=== PATIENT | male | born 1965 | race Caucasian/White ===

== ENCOUNTER 2016-07-20 21:09 | Inpatient (IN) ==
[2016-07-20] MEDS ORDERED: VANCOMYCIN IV PER PHARMACY MISC SCH (21:30)
[2016-07-21] MEDS: ZOFRAN IV PRN (00:29)
[2016-07-21] MEDS: MORPHINE IV PRN ×9 (00:29→22:28)
[2016-07-21] MEDS: LR 1,000 ML IV SCH ×3 (00:30→15:19)
[2016-07-21] MEDS: ZOSYN 3.375 GM/NS 3.375 GM/50 ML IVPB IV SCH ×5 (00:30→20:14)
[2016-07-21 01:45] LABS: AGAP 14; BUN 13 mg/dL (8-22); CALCIUM 8.6 mg/dL (8.8-10.2); CHLORIDE 95 mmol/L (98-107); COSMO 270; POTASSIUM 2.9 mmol/L (3.5-5.1); SODIUM 134 mmol/L (136-145); TCO2 25 mmol/L (25-35)
[2016-07-21] MEDS ORDERED: VANCOMYCIN 2,000 MG in NS 500 ML IV ONE (03:00)
[2016-07-21 06:20] LABS: MANUAL DIFF NEEDED? NO
--- NOTE | 2016-07-21 06:41 | HISTORY AND PHYSICAL ---
ADMITTING DIAGNOSIS: Scrotal abscess. HISTORY OF PRESENT ILLNESS: A 51-year-old male, presenting with a several day history of scrotal pain and edema that has been increasing in size. He is says he does not remember any elicit starting event that caused this, but it has progressively gotten worse. He was seen at the [facility]. At that point, thought he had a scrotal abscess I was called to transfer the patient, which we did. He was brought over here and started on antibiotics. He still is reporting pain in both his testicles and has significant swelling in his scrotum bilaterally. PAST MEDICAL HISTORY: 1. Chronic back pain. 2. Hypertension. 3. Chronic obstructive pulmonary disease. PAST SURGICAL HISTORY: 1. Appendectomy. 2. Back surgery. MEDICATIONS: Lisinopril, ibuprofen, Neurontin, and Ultram. ALLERGIES: No known drug allergies. SOCIAL HISTORY: Reviewed with patient. FAMILY HISTORY: Reviewed with patient. REVIEW OF SYSTEMS: A full 10 point review of systems obtained, negative as specified in history of present illness. PHYSICAL EXAMINATION: VITAL SIGNS: The patient is currently febrile with temperature 101.7 degrees. Pulse is regular at 85, respiratory rate is nonlabored. Blood pressure 150/58. O2 saturation 95% on room air. GENERAL EXAMINATION: No acute distress. Resting comfortably in bed. male, looks stated age. HEENT: Normocephalic, atraumatic. Pupils equal, round, react to light. Mucous membranes moist. Oropharynx benign. NECK: Supple. Trachea midline. CARDIOVASCULAR: Regular rate and rhythm. LUNGS: Grossly clear. ABDOMEN: Soft. Nontender, nondistended. GENITOURINARY: Significant scrotal edema noted and erythema noted. There is an area of necrosis on the left side of the scrotum. It is very tender to palpation. It is difficult to assess the erythema extending anywhere beyond the scrotum at this time. EXTREMITIES: Moves all extremities. NEUROLOGIC: Grossly intact. SKIN: No signs of jaundice. VASCULAR: All extremities perfused. LABORATORY: From this facility is currently pending. ASSESSMENT AND PLAN: A 51-year-old male with scrotal edema and erythema, possible abscess. 1. Possible scrotal abscess. At this time we will stop the start the patient on IV antibiotics given the tenderness and swelling. We will plan on evaluation in the operating room for possible aspiration versus drainage. The risks, benefits, and alternatives for the procedure were discussed. I have him on the schedule for later this morning. He is currently on vancomycin and Zosyn. We will continue those antibiotics for now. cc: Gianluca Hickey MD
[2016-07-21 06:52] LABS: AGAP 12; BASO% 0.1 % (0.0-0.8); BUN 12 mg/dL (8-22); CALCIUM 8.2 mg/dL (8.8-10.2); CHLORIDE 97 mmol/L (98-107); COSMO 272; EOS# 0.09 X1000 (0.0-0.7); EOS% 0.6 % (0.0-10.0); HEMATOCRIT 36.7 % (42.0-52.0); HEMOGLOBIN 11.7 g/dL (14.0-18.0); IMM GRAN# 0.04 X1000 (0.0-0.04); IMM GRAN% 0.3 % (0.0-0.5); LYMPH# 1.89 X1000 (1.2-3.4); LYMPH% 13.4 % (20.5-51.1); MCH 24.7 PG (27-31); MCHC 31.9 g/dL (33-37); MCV 77.4 FL (81-99); MONO# 1.65 X1000 (0.11-0.59); MONO% 11.7 % (1.7-9.3); MPV 10.6 FL (7.4-10.4); NEUT% 73.9 % (42.2-75.2); PLT 307 X1000 (130-400); POTASSIUM 3.4 mmol/L (3.5-5.1); RBC 4.74 XMIL (4.7-6.1); SODIUM 136 mmol/L (136-145); TCO2 27 mmol/L (25-35)
[2016-07-21] MEDS: MORPHINE ONE ×2 (09:07→09:18)
[2016-07-21] MEDS ORDERED: MORPHINE ONE (09:09)
[2016-07-21] MEDS ORDERED: VERSED ONE (09:09)
[2016-07-21] MEDS ORDERED: FENTANYL ONE (09:09)
[2016-07-21] MEDS ORDERED: DIPRIVAN 1% ONE (09:10)
[2016-07-21] MEDS ORDERED: BUPRENORPHINE TOP SCH (10:02)
[2016-07-21] MEDS ORDERED: ULTRAM PO PRN (10:02)
[2016-07-21] MEDS ORDERED: MOTRIN PO PRN (10:02)
[2016-07-21] MEDS: NEURONTIN PO SCH ×3 (10:34→17:18)
--- NOTE | 2016-07-21 14:33 | OPERATIVE NOTE ---
PROCEDURE DATE: 07/21/2016 PREOP DIAGNOSIS: Scrotal abscess. POSTOP DIAGNOSIS: Scrotal abscess. PROCEDURE: Incision and drainage of scrotal abscess. SURGEON: Gianluca Hickey MD. POISING INSPECTOR: None. ANESTHESIA: General endotracheal. FINDINGS: Purulence noted and sent for cultures. COMPLICATIONS: None at time of dictation. ESTIMATED BLOOD LOSS: 5 mL. SPECIMENS: culture of the purulence. DRAINS: Quarter-inch Donna drain placed in the wound. BRIEF HISTORY: The patient is a 51-year-old male presenting with 4- day history of swelling and pain in his scrotum. He had been seen in [facility] and found to have a scrotal abscess. Sent to [place]. The patient was admitted and started on antibiotics. Is felt the patient benefit from incision and drainage. It was discussed with the patient. All questions were answered. DESCRIPTION OF PROCEDURE: After informed consent was obtained, patient brought to the operative theatre and placed on operating table a supine position. General endotracheal anesthesia was then performed without complication. The patient is then repositioned in lithotomy position. The scrotal area was prepped and draped in a sterile fashion. After the formal time -out we examined the area. Appeared to be more the abscess was located in the left side. There was some necrotic skin noted on the left side of scrotum. We made a cruciate incision in this area, encountered significant amount of purulence which we drained and sent for culture. This area tracked up towards his inguinal canal but does not involve the inguinal canal. Did not appear to involve the testicle on the left side or the right side. It does not tract contralaterally. We irrigated out the wound copiously. Secured a Donna drain in the area with 3-0 chromic. The patient tolerated procedure well, had a sterile dressing. Postoperatively given the indurated area surrounding the area will keep the patient on IV antibiotics and monitor and wait for wound culture. Likely remove the [place] drain in a couple days. cc: Gianluca Hickey MD [facility]
[2016-07-21] MEDS: PRAVACHOL PO SCH (20:13)
[2016-07-21] MEDS: PERIDEX MT SCH (20:14)
[2016-07-21] MEDS: NICODERM PATCH TD SCH (20:53)
[2016-07-21] MEDS: VANCOMYCIN 1,600 MG in NS 250 ML IV SCH (20:53)
[2016-07-21] MEDS: HYZAAR 50/12.5 MG PO SCH (22:28)
[2016-07-22] MEDS: MORPHINE IV PRN ×9 (00:25→22:28)
[2016-07-22] MEDS: LR 1,000 ML IV SCH ×3 (00:26→13:58)
[2016-07-22] MEDS: ZOFRAN IV PRN ×2 (00:32→06:38)
[2016-07-22] MEDS: ZOSYN 3.375 GM/NS 3.375 GM/50 ML IVPB IV SCH ×5 (02:29→20:37)
[2016-07-22] MEDS: NORCO-10 PO PRN ×4 (03:41→20:11)
--- NOTE | 2016-07-22 05:57 | PROGRESS NOTE ---
DATE: 07/22/2016 SUBJECTIVE: The patient is currently doing well. Reports the pain appears appropriate. Otherwise, no new complaints. OBJECTIVE: Vital Signs: Patient is currently afebrile. His vital signs are stable. General: No acute distress. Up walking around. Cardiovascular: Regular rate and rhythm. Lungs: Clear. Abdomen: Soft, nontender, nondistended. Genitourinary: At this time, the patient's scrotum still has some erythema and induration. [place] drain is in place. ASSESSMENT AND PLAN: A 51-year-old male, status post incision and drainage of scrotal abscess: 1. Status post incision and drainage of scrotal abscess. At this time cultures are pending. He does have gram stain gram-positive cocci. We will keep him on vancomycin and Zosyn for right now. Await for speciation. He might be able to be transitioned over tomorrow if the wound continues to improve on Bactrim. cc: Gianluca Hickey MD
[2016-07-22] MEDS: NICODERM PATCH TD SCH (08:34)
[2016-07-22] MEDS: NEURONTIN PO SCH ×3 (08:34→16:17)
[2016-07-22] MEDS: PERIDEX MT SCH ×2 (08:34→20:38)
[2016-07-22] MEDS ORDERED: ROBINUL ONE (09:09)
[2016-07-22] MEDS ORDERED: ZOFRAN ONE (09:09)
[2016-07-22] MEDS ORDERED: LR 1,000 ML ONE (09:09)
[2016-07-22] MEDS ORDERED: XYLOCAINE-MPF 2% ONE (09:09)
[2016-07-22] MEDS ORDERED: EXTENSION SET 32 IN 4522 ONE (09:09)
[2016-07-22] MEDS ORDERED: ANESTHESIA PB SET 88 IN 5742 ONE (09:09)
[2016-07-22] MEDS: VANCOMYCIN 1,600 MG in NS 250 ML IV SCH (16:17)
[2016-07-22] MEDS: HYZAAR 50/12.5 MG PO SCH (20:13)
[2016-07-22] MEDS: PRAVACHOL PO SCH (20:16)
[2016-07-23] MEDS: NORCO-10 PO PRN ×2 (01:34→05:44)
[2016-07-23] MEDS: ZOSYN 3.375 GM/NS 3.375 GM/50 ML IVPB IV SCH (03:48)
[2016-07-23] MEDS: MORPHINE IV PRN (03:48)
[2016-07-23] MEDS: LR 1,000 ML IV SCH (05:50)
--- NOTE | 2016-07-23 06:32 | PROGRESS NOTE ---
DATE: 07/23/2016 SUBJECTIVE: Patient doing better. His scrotal swelling has improved. The overall erythema has improved. OBJECTIVE: Vital Signs: Patient is currently afebrile. His vital signs are stable. General: No acute distress. Cardiovascular: Regular rate and rhythm. Lungs: Grossly clear. Abdomen: Soft, nontender, nondistended. Genitourinary: Scrotal edema improved. Removed Donna drain. Overall erythema is improved. No active drainage or purulence noted. LABORATORY DATA: Microbiology shows gram-positive cocci. ASSESSMENT/PLAN: A 51-year-old male status post incision and drainage of scrotal abscess. Status post incision and drainage of scrotal abscess: At this time, patient is likely safe to be discharged home. We will transition him over to Bactrim. Removed his Donna drain. He needs to see me in the office in 1 week. cc: Gianluca Hickey MD
[2016-07-23 07:54] VITALS: BP 138/74
[2016-07-23] MEDS: NEURONTIN PO SCH (09:01)
[2016-07-23] MEDS: NICODERM PATCH TD SCH (09:01)
[2016-07-24] MEDS ORDERED: PATIENT'S OWN MED TOP SCH (09:00)
--- NOTE | 2016-07-25 14:14 | DISCHARGE SUMMARY ---
ADMISSION DATE: 07/20/2016 DISCHARGE DATE: 07/23/2016 ADMITTING DIAGNOSIS: Scrotal abscess. DISCHARGE DIAGNOSIS: Status post drainage of scrotal abscess. ADMITTING PHYSICIAN: Dr. Gianluca Hickey. CONSULTATIONS: None. PROCEDURE: On 07/21/2016, the patient underwent drainage of scrotal abscess. BRIEF HISTORY AND COURSE OF STAY: The patient is a 51-year-old male presenting initially to [place] with a 4 day history of swelling and pain in the scrotum. He was seen at [facility] and was found to have a scrotal abscess and sent to the hospital for further evaluation. He was admitted and started on IV antibiotics. He underwent the previously described procedure which he tolerated well. We did have a [place] drain left in the wound. On postop day #2, after he had shown improvement we removed the Donna drain. At that time, it was felt that the scrotal edema had improved, his erythema had improved, and it was felt that it was safe to have him discharged home. He was transitioned over to p.o. antibiotics and discharged home. DISPOSITION: Home. DISCHARGE CONDITION: Stable. FOLLOWUP: Patient was told to follow up with me in 1 week. PRESCRIPTIONS: Patient was given a prescription for antibiotics and pain medicine. cc: Gianluca Hickey MD [facility]
== END 2016-07-23 11:04 | disposition home or self-care (01) ==
LOC: 4N 21:09
PROVIDERS: ADMIT Surgery; ATTEND Surgery